=== PATIENT | male | born 1945 | race Caucasian/White ===

== ENCOUNTER 2019-04-21 08:00 | Emergency (ER) | payer OTHER ==
[~2019-04-21] VITALS: Ht 188 cm; Wt 80.3 kg
[2019-04-21] MEDS ORDERED: ACETAMINOPHEN 325 MG TABLET PO ONE (08:15)
--- NOTE | 2019-04-21 08:20 | NUR ---
Patient has refused the application of the cervical collar at this time.
[2019-04-21 08:29] LABS: HEMOGLOBIN 15.7 G/DL (13.3-17.7); WHITE BLOOD COUNT 3.8 10^3/uL (4.3-11.0)
[2019-04-21 08:30] LABS: MEAN PLATELET VOLUME 10.7 FL (7.4-10.4); RED CELL DISTRIBUTION WIDTH 11.9 % (10.0-14.5)
--- NOTE | 2019-04-21 08:34 | ED General ---
General Chief Complaint: Trauma-Non Activation Stated Complaint: FALL - HEAD INJ History of Present Illness Date Seen by Provider: Apr 21, 2019 Time Seen by Provider: 08:00 Initial Comments The patient is a 73-year-old male with a history of persistent atrial fibrillation on Eliquis. He is a daily runner and presents for evaluation after an apparent exertional syncopal episode while running prior to arrival. Patient remembers leaving his house but then does not remember what happened. He was evidently found by some local teenagers bloody and confused. A neighbor found him and transported him to the emergency department for evaluation. On initial evaluation here in the emergency department the patient is alert and oriented and pleasantly and appropriately interactive and in no acute distress. Extensive abrasions are noted to his left face and ear without open lacerations or signs of basilar fracture. He reports pain to his head and the base of his posterior neck. He reports he felt well before leaving the house for his run. He states he feels well now aside from pain where he hurt his head. He denies pain to chest or abdomen or back or arms or legs. He is in no distress. Vital signs are appropriate here and telemetry rhythm is suspicious for controlled rate atrial fibrillation. Allergies and Home Medications Allergies Coded Allergies: No Known Drug Allergies (Unverified , 04/21/19) Patient Home Medication List Home Medication List Reviewed: Yes Review of Systems Review of Systems Constitutional: see HPI All Other Systems Reviewed Negative Unless Noted: Yes (Negative excepted noted.) Past Zyrkovx-Oqmjam-Pqtitr Hx Past Med/Social Hx: Reviewed Nursing Past Med/Soc Hx Family Medical History Reviewed Nursing Family Hx Physical Exam Vital Signs Vital Signs - First Documented 04/21/19 08:00 Temp 36.4 Pulse 69 Resp 14 B/P (MAP) 155/87 (109) Pulse Ox 100 O2 Delivery Room Air Capillary Refill : Height, Weight, BMI Height: '" Weight: lbs. oz. kg; BMI Method: General Appearance: No Apparent Distress Comments This is an elderly male appearing nontoxic and in no acute distress. Head is normocephalic and with extensive abrasions to the left face and left ear. No signs basilar fracture. No malocclusion. No instability of the midface. Neck is supple and with mild tenderness to the base of the neck posteriorly. Patient declines c-collar. Oropharynx is moist. Lungs are clear to auscultation at all stations. There is a normal S1 and S2 without rubs or gallops and capillary refill is appropriate, less than 2 seconds globally. Abdomen is soft, nontender and nondistended. Skin is warm and dry without cyanosis, clubbing or edema. Psychiatrically, the patient demonstrates appropriate mood and affect and is alert. Neurologically, cranial nerves II through XII are intact and there are no lateralizing deficits noted. Speech is normal. Language is normal. Coordination is normal. There is no dysmetria with finger to nose bilaterally. Strength is 5 out of 5 in all joints of bilateral upper and lower extremities. Sensation is intact to light touch in bilateral upper and lower extremities. The patient ambulates with a narrow, steady gait in the emergency department. He is alert and oriented 4. Procedures/Interventions Wound Location: Face Wound Length (cm): 3 Wound's Depth, Shape: sub Q Wound Explored: clean Irrigated w/ Saline (ccs): 1000 Betadine Prep?: Yes Layer Closure?: 1 Progress DERMABOND used for laceration repair. Patient tolerated well. Progress/Results/Core Measures Suspected Sepsis SIRS Temperature: Pulse: Respiratory Rate: Laboratory Tests 04/21/19 08:20: White Blood Count 3.8L Blood Pressure / Mean: Laboratory Tests 04/21/19 08:20: Creatinine 1.10, INR Comment 1.0, Platelet Count 131, Total Bilirubin 2.0H Results/Orders Lab Results Laboratory Tests Test 04/21/19 08:20 Range/Units White Blood Count 3.8 L 4.3-11.0 10^3/uL Red Blood Count 4.66 4.35-5.85 10^6/uL Hemoglobin 15.7 13.3-17.7 G/DL Hematocrit 46 40-54 % Mean Corpuscular Volume 99 80-99 FL Mean Corpuscular Hemoglobin 34 25-34 PG Mean Corpuscular Hemoglobin Concent 34 32-36 G/DL Red Cell Distribution Width 11.9 10.0-14.5 % Platelet Count 131 130-400 10^3/uL Mean Platelet Volume 10.7 H 7.4-10.4 FL Prothrombin Time 13.6 12.2-14.7 SEC INR Comment 1.0 0.8-1.4 Activated Partial Thromboplast Time 26 24-35 SEC Sodium Level 140 135-145 MMOL/L Potassium Level 4.1 3.6-5.0 MMOL/L Chloride Level 99 98-107 MMOL/L Carbon Dioxide Level 27 21-32 MMOL/L Anion Gap 14 5-14 MMOL/L Blood Urea Nitrogen 14 7-18 MG/DL Creatinine 1.10 0.60-1.30 MG/DL Estimat Glomerular Filtration Rate > 60 BUN/Creatinine Ratio 13 Glucose Level 108 H 70-105 MG/DL Calcium Level 9.4 8.5-10.1 MG/DL Corrected Calcium 8.5-10.1 MG/DL Total Bilirubin 2.0 H 0.1-1.0 MG/DL Aspartate Amino Transf (AST/SGOT) 32 5-34 U/L Alanine Aminotransferase (ALT/SGPT) 23 0-55 U/L Alkaline Phosphatase 73 40-136 U/L Troponin I < 0.30 <0.30 NG/ML Total Protein 7.1 6.4-8.2 GM/DL Albumin 4.8 H 3.2-4.5 GM/DL My Orders Orders - TANYA OBRIEN MD Cbc No Diff (04/21/19 08:12) Comprehensive Metabolic Panel (04/21/19 08:12) Troponin I Fs (04/21/19 08:12) Ekg Tracing (04/21/19 08:12) Chest 1 View Ap/Pa Only (04/21/19 08:12) Protime With Inr (04/21/19 08:12) Partial Thromboplastin Time (04/21/19 08:12) Acetaminophen Tablet/Caplet (Tylenol T (04/21/19 08:15) Cervical Collar: Apply (04/21/19 08:12) Ct Head/Face/Cervical Wo (04/21/19 08:12) Dipht,Pertuss(Acell),Tet Adult (Boostrix (04/21/19 09:00) Vital Signs/I&O 04/21/19 08:00 Temp 36.4 Pulse 69 Resp 14 B/P (MAP) 155/87 (109) Pulse Ox 100 O2 Delivery Room Air Capillary Refill : Progress Note : Time: 08:44 Progress Note Concerning episode of possible exertional syncope in the setting of active persistent atrial fibrillation. We will check head and cervical spinal and maxillofacial CT scans and chest x-ray as well as labs and EKG. We will then reevaluate. We'll update tetanus. We will wash and disinfect wounds. Discussed with the patient that in view of apparent exertional syncope while running with active atrial fibrillation that my recommendation was for admission to the hospital for observation on telemetry and attention from the account coordinator even if imaging and labs were reassuring. Patient states that he is unable to stay for admission to the hospital because she is the sole caregiver for his with dementia and must be home by 9 AM. I explained that he was at risk for decompensation, permanent disability and even with leaving the hospital against my advice but he was able to restate these risks in his own words and understood them and agreed to be wholly and solely responsible for them in their entirety. Patient alert and oriented 4, not clinically intoxicated and has capacity to refuse indicated medical care in my opinion. As the patient desired to leave against my advice I did psychotherapist counselor him that he should follow up very closely with account coordinator in the next 1-2 days and that until his account coordinator clears him to run he should abstain from exercise. He understood. In accordance with the patient's wishes, we will check labs and imaging and will plan for his release against advice if these are reassuring. Update 0913: Workup complete and is unremarkable and reassuring for evidence of significant acute process. Patient is in controlled rate atrial fibrillation which is apparently his baseline rhythm on the monitoring tech. He has thought about it and is choosing to leave against advice at this time. As above, he understands the risks and understands that we will be glad to take further care of him if he changes his mind. ECG Comment Multiple EKGs obtained and all show controlled rate atrial fibrillation with a rate of around 70 without acute ischemic changes. Interpretation by me. Departure Impression Primary Impression: Syncope and collapse Additional Impression: Atrial fibrillation Qualified Codes: I48.19 - Other persistent atrial fibrillation Disposition: AGAINST MEDICAL ADVICE Condition: Against Medical Advice Departure-Patient Inst. Patient Instructions: Atrial Fibrillation, Concussion, Adult (DC) Add. Discharge Instructions: As we discussed, you are leaving AGAINST MEDICAL ADVICE. Please follow-up with your account coordinator in the next 1-2 days and please abstain from running or other physical activity until cleared to return to full activity by your account coordinator. Please keep in mind that you may return to the emergency department any time if you change your mind about further evaluation and treatment on an inpatient basis and we will be glad to take care of you. Return right away with recurrent or worsening symptoms or with any other new concern. TANYA OBRIEN MD Apr 21, 2019 08:34
--- NOTE | 2019-04-21 08:34 | Diagnostic Imaging Report ---
PATIENT HISTORY: Altered mental status, memory loss. TECHNIQUE: Frontal view the chest. COMPARISON: None FINDINGS: The lung volumes are normal. No focal consolidation is seen. No large pleural effusion or pneumothorax is seen. The cardiomediastinal silhouette is normal in size and contour. No acute osseous abnormality is seen. IMPRESSION: No acute pulmonary abnormality seen. Dictated by: Dictated on workstation # [id number]
[2019-04-21 08:49] LABS: PROTHROMBIN TIME PATIENT 13.6 SEC (12.2-14.7); SODIUM 140 MMOL/L (135-145)
[2019-04-21 08:50] LABS: ALANINE AMINOTRANSFERASE 23 U/L (0-55); ALBUMIN 4.8 GM/DL (3.2-4.5); ALKALINE PHOSPHATASE 73 U/L (40-136); BUN/CREATININE RATIO 13; CALCIUM 9.4 MG/DL (8.5-10.1); CARBON DIOXIDE 27 MMOL/L (21-32); CHLORIDE 99 MMOL/L (98-107); GFR ESTIMATED > 60; GLUCOSE 108 MG/DL (70-105); POTASSIUM 4.1 MMOL/L (3.6-5.0); TOTAL PROTEIN 7.1 GM/DL (6.4-8.2)
[2019-04-21] MEDS ORDERED: TETANUS,DIPTH,PERTUSS P/F (BOOSTRIX) 0.5 ML VIAL IM ONE (09:00)
--- NOTE | 2019-04-21 09:04 | Diagnostic Imaging Report ---
PROCEDURE: CT head, face, and cervical spine without contrast. TECHNIQUE: Multiple contiguous axial images were obtained through the head, neck, and facial bones without the use of intravenous contrast. Sagittal and coronal reformations through the cervical spine and facial bones were also performed. Auto Exposure Controls were utilized during the CT exam to meet ALARA standards for radiation dose reduction. INDICATION: Confusion. No prior studies are available for comparison. CT HEAD: There appears to be some soft tissue swelling in the left supraorbital scalp. Ventricles and sulci are prominent suggestive of cerebral atrophy. No sulcal effacement or midline shift is detected. No acute intra-axial or extra-axial hemorrhage is detected. Cisterns are patent. Visualized paranasal sinuses are clear. IMPRESSION: Left supraorbital swelling. No acute intracranial process is detected. CT cervical spine: Curvature of the cervical spine is normal. There is minimal retrolisthesis C4 on C5. Significant degenerative disc disease is seen throughout the cervical spine with disc space narrowing and marginal spurring, greatest at C4-C5, C5-C6 and C6-C7 levels. No fractures are identified. IMPRESSION: Cervical spondylosis. No acute bony abnormality is detected. CT FACE: The mandible is intact. Zygomatic arches are intact. Maxillary sinus guzman and orbital guzman appear to be intact. No displaced nasal bone fracture is seen. There is some soft tissue swelling in the left supraorbital tissues. Both globes appear to be intact. IMPRESSION: Left supraorbital soft tissue swelling. No facial bone fracture is detected. Dictated by: Dictated on workstation # [id number]
--- NOTE | 2019-04-21 09:20 | NUR ---
Patient wishes to leave against medical advice at this time. He states that he is the only one that is available to care for his with severe dementia. This RN reinterated the benefits of hospital admission for observation and the risk of leaving against medical advice.
[2019-04-21 09:22] VITALS: BP 138/89
[2019-04-21] MEDS ORDERED: OXC5T PO (19:15)
== END 2019-04-21 09:22 | disposition left against medical advice (07) ==
LOC: ER FS 08:02
DX: R55 Syncope and collapse (principal); I48.91 Unspecified atrial fibrillation; S01.81XA Laceration without foreign body of other part of head, initial encounter; Z23 Encounter for immunization; Z79.01 Long term (current) use of anticoagulants; W19.XXXA Unspecified fall, initial encounter
CPT/HCPCS: 36415; 70450; 70486; 71045; 72125; 80053; 84484; 85027; 85610; 85730; 90715; 93005

== ENCOUNTER 2019-04-21 14:29 | Emergency (ER) | payer OTHER ==
--- NOTE | 2019-04-21 14:46 | ED General ---
General Stated Complaint: LT EYE SWELLING - FELL ETHEL GARCÍA History of Present Illness Date Seen by Provider: Apr 21, 2019 Time Seen by Provider: 14:30 Initial Comments 73-year-old gentleman with a history of persistent atrial fibrillation who was previously seen in this emergency department this morning after an apparent syncopal episode during a run, with consequent facial abrasions and lacerations, presents for reevaluation of progressive left periorbital swelling and bruising. Patient previously left the emergency department AGAINST MEDICAL ADVICE when it was recommended that he be admitted for observation and attention from the power distributor given exertional syncope in an elderly gentleman with persistent atrial fibrillation. He declined to be admitted. Patient returns because he was worried about progression of the left periorbital swelling and bruising which was previously seen this morning. At the time of his departure from the emergency Department I did school guidance counselor him that he could expect the left periorbital bruising and swelling to get worse and indeed it has. I provided him with reassurance that this was the expected natural history of the periorbital contusion he sustained this morning; we already obtained CT scans of the head, facial bones and cervical spine and these were reassuring and as such there is no suspicion for basilar fracture, orbital fracture or other acute process underlying the patient's left periorbital contusion.. I queried the patient as to how he was doing otherwise and he stated that aside from the left periorbital contusion he was feeling well and had no complaints. He ambulated in without any difficulty from his car. I raised with him again that it was my recommendation that he be admitted for observation and a change from the power distributor and he again stated that he felt fine and felt that he just tripped. I pointed out that he did not have wounds on his palms as would be expected in a trip and fall versus a syncopal episode. He continued to decline the recommended observation admission. I let him know that we would be glad to take care of him if he had any further issues or concerns or wished to be further evaluated as per our recommendations. He stated he understood and departed the emergency department. Allergies and Home Medications Patient Home Medication List Home Medication List Reviewed: Yes Review of Systems Review of Systems Constitutional: see HPI All Other Systems Reviewed Negative Unless Noted: Yes (Negative excepted noted.) Past Ccjepza-Seicns-Lxkviy Hx Past Med/Social Hx: Reviewed Nursing Past Med/Soc Hx Family Medical History Reviewed Nursing Family Hx Physical Exam Vital Signs Capillary Refill : Height, Weight, BMI Height: '" Weight: lbs. oz. kg; BMI Method: General Appearance: No Apparent Distress Comments Tessz an elderly gentleman appearing nontoxic and in no acute distress. Head is normocephalic and with extensive left facial abrasions and a laceration to the left forehead which was Dermabonded earlier. There is a left periorbital contusion which has grown in size since previously noted this morning to involve the entire left orbit with considerable swelling seen. Neck ranges fully in all dimensions. Oropharynx is moist. There is normal respiratory excursion and the patient is not dyspneic and speaks comfortably in full sentences. From a cardiovascular and musculoskeletal standpoint, extremities are warm and well perfused and without edema. Skin is warm and dry without cyanosis, clubbing or edema. Psychiatrically, the patient demonstrates appropriate mood and affect and is alert. Neurologically, patient moves all extremities equally and no lateralizing deficits are noted and he is alert and oriented 4. Progress/Results/Core Measures Suspected Sepsis SIRS Temperature: Pulse: Respiratory Rate: Blood Pressure / Mean: Results/Orders Vital Signs/I&O Capillary Refill : Progress Note : Time: 14:50 Progress Note As above, patient was provided with reassurance concerning the expected natural history of his left periorbital contusion sustained earlier in the day. Admission to [facility] for observation and attention from the power distributor for his syncopal episode earlier was again offered and he again declined. I again encouraged him to follow up very closely with his power distributor and his primary care physician in the next 1-2 days. He departed the emergency department with a narrow, steady gait. Departure Impression Primary Impression: Syncope and collapse Additional Impression: Periorbital contusion of left eye Qualified Codes: S05.12XD - Contusion of eyeball and orbital tissues, left eye, subsequent encounter Disposition: 01 HOME, SELF-CARE Condition: Against Medical Advice TANYA OBRIEN MD Apr 21, 2019 14:46
[2019-04-21] MEDS ORDERED: OXC5T PO (19:15)
== END 2019-04-21 14:57 ==
LOC: EDUNIT# 14:29 → ER FS 14:56
DX: S05.12XD Contusion of eyeball and orbital tissues, left eye, subsequent encounter (principal); R55 Syncope and collapse; Z23 Encounter for immunization; W19.XXXD Unspecified fall, subsequent encounter

== ENCOUNTER 2019-04-21 18:08 | Emergency (ER) | payer OTHER ==
[~2019-04-21] VITALS: Ht 188 cm; Wt 80.3 kg
--- NOTE | 2019-04-21 19:12 | ED Upper Extremity ---
General Chief Complaint: Upper Extremity Stated Complaint: RT WRIST PAIN Nursing Triage Note: Patient presents to the ED with c/o right wrist pain. States that he was seen in the ED earlier today for a fall/syncopal episode. Since leaving the ED he has developed pain in his right wrist and reports that he is having a significant amount of pain. Nursing Sepsis Screen: No Definite Risk History of Present Illness Date Seen by Provider: Apr 21, 2019 Time Seen by Provider: 19:06 Initial Comments The patient is a 73-year-old male with a history of persistent atrial fibrillation on Eliquis. He had a fall while running this morning, likely from a syncopal episode, and has been seen here twice previously today for issues related to his fall. He has declined admission to the hospital which was indicated secondary to syncopal episode in a gentleman with active atrial fibrillation which occurred during exertion. He has signed out AGAINST MEDICAL ADVICE. He reiterates that he is not interested in observation admission in the tension from discharge planner as was recommended earlier. He returns this evening for evaluation of right wrist discomfort which was initially not significant but has gotten worse over the course of the day. He denies any other new symptoms or concerns and is otherwise feeling bruised and sore but has not had any further problems he would like evaluated. He states that he is here only for evaluation of his right wrist discomfort and does not wish to readdress any of the other issues that were explored earlier today. Allergies and Home Medications Allergies Coded Allergies: No Known Drug Allergies (Unverified , 04/21/19) Patient Home Medication List Home Medication List Reviewed: Yes Review of Systems Constitutional: no symptoms reported All Other Systems Reviewed Negative Unless Noted: Yes (Negative excepted noted.) Past Usdiugj-Wqrmjf-Nsubkp Hx Past Med/Social Hx: Reviewed Nursing Past Med/Soc Hx Patient Social History Alcohol Use: Denies Use Recreational Drug Use: No Smoking Status: Never a Smoker 2nd Hand Smoke Exposure: No Recent Foreign Travel: No Contact w/Someone Who Travel: No Recent Infectious Disease Expo: No Recent Hopitalizations: No Physical Abuse: No Sexual Abuse: No Mistreated: No Fear: No Immunizations Up To Date Tetanus Booster (TDap): More than 5yrs Seasonal Allergies Seasonal Allergies: No Past Medical History Surgeries: No Respiratory: No Cardiac: Yes Atrial Fibrillation, Irregular Heartbeat Neurological: No Genitourinary: No Gastrointestinal: No Musculoskeletal: No Endocrine: No HEENT: No Cancer: No Psychosocial: No Integumentary: No Blood Disorders: No Family Medical History Reviewed Nursing Family Hx Physical Exam Vital Signs Vital Signs - First Documented 04/21/19 18:26 Temp 37.1 Pulse 65 Resp 20 B/P (MAP) 97/76 (83) Pulse Ox 100 O2 Delivery Room Air Capillary Refill : Less Than 3 Seconds Height, Weight, BMI Height: '" Weight: lbs. oz. kg; 22.00 BMI Method: General Appearance: no apparent distress This is an elderly male appearing nontoxic and in no acute distress. He has evidence of left facial abrasion and a repaired laceration as well as a developing left periorbital contusion which was previously seen. Please see details of the to notes from earlier today for further information about his facial injuries as these are essentially not changed. Neck is supple and nontender. Oropharynx is moist. Lungs are clear to auscultation at all stations. There is a normal S1 and S2 without rubs or gallops and capillary refill is appropriate, less than 2 seconds globally. Abdomen is soft, nontender and nondistended. Skin is warm and dry without cyanosis, clubbing or edema. Psychiatrically, the patient demonstrates appropriate mood and affect and is alert. From a musculoskeletal standpoint, evaluation of the right upper extremity is remarkable for mild swelling and tenderness worst over the radial aspect of the volar right wrist. There is mild pain with ranging of the right wrist passively but the patient does have full range of motion of the right wrist. Active ranging is limited secondary to discomfort. The right upper extremity is neurovascularly intact distally with strength 5 out of 5, sensation intact to light touch in all nerve distributions, radial pulse 2+, capillary refill less than 2 seconds, hand warm and well-perfused. Progress/Results/Core Measures Results/Orders My Orders Orders - TANYA OBRIEN MD Hand 3 View Right (04/21/19 18:32) Vital Signs/I&O 04/21/19 18:26 Temp 37.1 Pulse 65 Resp 20 B/P (MAP) 97/76 (83) Pulse Ox 100 O2 Delivery Room Air Blood Pressure Mean: 83 Progress Progress Note : Time: 19:10 Progress Note Plain films of the right wrist obtained and are unremarkable for evidence of fracture or dislocation. Hand is also imaged and these images too are unre markable and reassuring. We'll prescribe something stronger for pain which the patient may take as needed on top of Tylenol at home and will place a Velcro wrist splint and will refer the patient back to his primary for close follow-up in the next 1-2 days. As per prior notes, the patient declines indicated admission to the hospital for observation on telemetry and attention from the discharge planner. This has not changed. We will proceed with discharge at this time. Diagnostic Imaging Diagonstic Imaging: Xray Comments Plain films of the right wrist and hand are reviewed and are unremarkable for fracture, dislocation or other acute bony abnormality on my read. Departure Impression Primary Impression: Contusion of right wrist, initial encounter Disposition: HOME, SELF-CARE Condition: Improved Departure-Patient Inst. Referrals: INA TEE MD (PCP/Family) Primary Care Physician Add. Discharge Instructions: We are providing you with a wrist brace which she may use for comfort. Rest, ice and elevate your wrist and hand. We are prescribing something stronger for pain which you may use as needed. Return to the emergency department right away with recurrent or worsening symptoms or with any other new symptoms of concern. As we discussed earlier today, it is extremely important that you follow up closely with your discharge planner. If you feel you would like that evaluation to happen on an inpatient basis as we recommended earlier, simply return and we will facilitate that. Scripts Oxycodone Hcl (Oxycodone IR) 5 Mg Tab 5 MG PO Q6H PRN for PAIN-SEVERE (8-10) for 7 Days, #8 TAB Prov: TANYA OBRIEN MD 04/21/19 TANYA OBRIEN MD Apr 21, 2019 19:12
[2019-04-21] MEDS ORDERED: OXC5T PO (19:15)
--- NOTE | 2019-04-21 19:20 | Diagnostic Imaging Report ---
INDICATION: Fall, pain COMPARISON: None available TECHNIQUE: 3 radiographs of the right hand dated 04/21/2019 FINDINGS: No acute fracture or dislocation. Mild scattered degenerative changes, particularly involving the 2nd DIP joint where there is significant joint space narrowing and osteophyte formation. Carpal alignment is maintained. Scapholunate distance is within normal limits. No suspicious radiopaque foreign body. IMPRESSION: No acute osseous abnormality with mild scattered degenerative changes, greatest involving the 2nd DIP joint. Dictated by: Dictated on workstation # [id number]
[2019-04-21 19:24] VITALS: BP 97/76
== END 2019-04-21 19:24 | disposition home or self-care (01) ==
LOC: EDUNIT# 18:08 → ER FS 18:09
DX: S60.211A Contusion of right wrist, initial encounter (principal); I48.91 Unspecified atrial fibrillation; Z23 Encounter for immunization; W19.XXXA Unspecified fall, initial encounter
CPT/HCPCS: 73130

== ENCOUNTER 2019-08-16 14:52 | Emergency (ER) | payer OTHER ==
[~2019-08-16] VITALS: Ht 187.9 cm; Wt 77.3 kg
[~2019-08-16 14:52] MED LIST: OXC5T PO
--- NOTE | 2019-08-16 15:03 | ED Lower Extremity ---
General Stated Complaint: LT KNEE SWELLING Source: patient Exam Limitations: no limitations History of Present Illness Date Seen by Provider: August 16, 2019 Time Seen by Provider: 15:03 Initial Comments 73-year-old male presents with left knee and lower leg swelling. Patient reports that it started about a week ago. That call days ago he was seen by his primary care provider had a negative x-ray and a negative ultrasound. These reports are still little concerned about a blood clot. He also reports they found a Bowden's cyst on the ultrasound. Patient has some mild increased warmth. He does have some pitting edema. Patient reports that he runs daily and felt that he hurt his knee after running. That he patient also reports that he's been taking some hydrocodone and ibuprofen. That since he started the pain medication he is had constipation. He denies any fevers chills or other systemic complaints. Allergies and Home Medications Allergies Coded Allergies: No Known Drug Allergies (Unverified , 04/21/19) Home Medications Oxycodone Hcl 5 Mg Tab, 5 MG PO Q6H PRN for PAIN-SEVERE (8-10) Prescribed by: TANYA OBRIEN on 04/21/191914 Patient Home Medication List Home Medication List Reviewed: Yes Review of Systems Constitutional: No chills, No fever, No malaise EENTM: see HPI Respiratory: no symptoms reported Cardiovascular: no symptoms reported Gastrointestinal: no symptoms reported Genitourinary: no symptoms reported Musculoskeletal: see HPI Skin: see HPI Past Xnxegqn-Cbedds-Kceqvg Hx Past Med/Social Hx: Reviewed Nursing Past Med/Soc Hx Patient Social History 2nd Hand Smoke Exposure: No Recent Foreign Travel: No Contact w/Someone Who Travel: No Recent Hopitalizations: No Immunizations Up To Date Tetanus Booster (TDap): More than 5yrs Seasonal Allergies Seasonal Allergies: No Past Medical History Surgeries: No Respiratory: No Cardiac: Yes Atrial Fibrillation, Irregular Heartbeat Neurological: No Genitourinary: No Gastrointestinal: No Musculoskeletal: No Endocrine: No HEENT: No Cancer: No Psychosocial: No Integumentary: No Blood Disorders: No Physical Exam Vital Signs Vital Signs - First Documented 08/16/19 15:00 Temp 35.3 Pulse 73 Resp 22 B/P (MAP) 97/71 (80) Pulse Ox 100 O2 Delivery Room Air Capillary Refill : Height, Weight, BMI Height: '" Weight: lbs. oz. kg; 22.00 BMI Method: General Appearance: WD/WN, no apparent distress HEENT: PERRL/EOMI Cardiovascular: normal peripheral pulses, regular rate, rhythm Respiratory: chest non-tender, lungs clear Knees: right knee non-tender; left knee pain, left knee swelling (3+ edema in the lower leg) Neurologic/Psychiatric: alert, normal mood/affect, oriented x 3 Skin: normal color, warm/dry Progress/Results/Core Measures Results/Orders My Orders Orders - ALLIE EDWARDS DO Us Venous Lower Ext Lt (08/16/19 15:11) Vital Signs/I&O 08/16/19 15:00 Temp 35.3 Pulse 73 Resp 22 B/P (MAP) 97/71 (80) Pulse Ox 100 O2 Delivery Room Air Progress Progress Note : Time: 16:17 Progress Note Patient with large Bowden's cyst with rupture with large fluid collection. Patient with good pulses. Patient with no numbness tingling or other signs of compartment syndrome. Discussed with patient need for elevation in other exercises a help remove the fluid. Patient to be referred to Jake Nunes. I did discuss with ID need for patient to follow-up with a hearing aid specialist. They where given Jake Nunes contact information and will attempt to expidite a preauthorization for close follow-up. Patient to be discharged home in stable condition. Diagnostic Imaging Diagonstic Imaging: Ultrasound Comments [facility], [place] NAME: [facility] REC#: [id number] PT STATUS: REG ER : 1945 PHYSICIAN: ALLIE EDWARDS DO ADMIT DATE: 08/16/19/ER FS Signed Date of Exam:08/16/19 US VENOUS LOWER EXT LT PROCEDURE: US left lower extremity venous. TECHNIQUE: Multiple real-time grayscale images were obtained over the left lower extremity in various projections. Additional duplex Doppler and color Doppler images were also obtained. INDICATION: Left leg pain and swelling. FINDINGS: There is no evidence of left lower extremity DVT. Left lower extremity deep venous system demonstrates normal compressibility with normal response to augmentation and Valsalva. There is a large complex fluid collection in the left popliteal fossa extending into the calf measuring at least 10 cm x 6 cm x 3 cm. This most likely represents a ruptured Bowden's cyst. IMPRESSION: 1. No evidence of left lower extremity DVT. 2. Probable ruptured Bowden's cyst. Departure Impression Primary Impression: Synovial cyst of popliteal space [Bowden], left knee Disposition: 01 HOME, SELF-CARE Condition: Stable Departure-Patient Inst. Referrals: SHUKRI HARPER MD (PCP) Primary Care Physician ELENA CASTELLON Patient Instructions: Bowden's (Popliteal) Cyst, Bowden's Cyst (DC) Add. Discharge Instructions: Recommend she follow-up with elena kohlersJake TREVOR L DO August 16, 2019 15:03
--- NOTE | 2019-08-16 15:42 | Diagnostic Imaging Report ---
PROCEDURE: US left lower extremity venous. TECHNIQUE: Multiple real-time grayscale images were obtained over the left lower extremity in various projections. Additional duplex Doppler and color Doppler images were also obtained. INDICATION: Left leg pain and swelling. FINDINGS: There is no evidence of left lower extremity DVT. Left lower extremity deep venous system demonstrates normal compressibility with normal response to augmentation and Valsalva. There is a large complex fluid collection in the left popliteal fossa extending into the calf measuring at least 10 cm x 6 cm x 3 cm. This most likely represents a ruptured Bowden's cyst. IMPRESSION: 1. No evidence of left lower extremity DVT. 2. Probable ruptured Bowden's cyst. Dictated by: Dictated on workstation # [id number]
--- NOTE | 2019-08-16 15:56 | NUR ---
Report was given to BECKY Dinero at this time. Care was transferred at this time.
[2019-08-16 16:17] VITALS: BP 97/71
--- OUTSIDE RECORDS SUMMARY | 2019-08-16 19:16 | XMS REPORT | Continuity of Care Document ---
Author Organization Unknown Address Unknown Phone Unavailable Allergies Active Description Code Type Severity Reaction Onset Reported/Identified Relationship to Patient Clinical Status Yes No Known Drug Allergies [id number] Drug Allergy Unknown N/A 04/21/2019 Medications There is no data. Problems Date Dx Coded Attending Type Code Diagnosis Diagnosed By 04/21/2019 TANYA OBRIEN MD, Ot I48. 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 91 UNSPECIFIED ATRIAL FIBRILLATION 04/24/2019 TANYA OBRIEN MD, Ot M25.531 PAIN IN RIGHT WRIST 04/24/2019 TANYA OBRIEN MD, Ot S60.211A CONTUSION OF RIGHT WRIST, INITIAL ENCOUN 04/24/2019 TANYA OBRIEN MD, Ot W19.XXXA UNSPECIFIED FALL, INITIAL ENCOUNTER 04/24/2019 TANYA OBRIEN MD, Ot Z23 ENCOUNTER FOR IMMUNIZATION 07/31/2019 TANYA OBRIEN MD, Ot I48. 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 Results Test Result Range Automated blood complete blood count (he mogram) panel - 04/21/19 08:20 Blood leukocytes automated count (number/volume) 3.8 10*3/uL 4.3-11.0 Blood erythrocytes automated count (number/volume) 4.66 10*6/uL 4.35-5.85 Venous blood hemoglobin measurement (mass/volume) 15.7 g/dL 13.3-17.7 Blood hematocrit (volume fraction) 46 % 40-54 Automated erythrocyte mean corpuscular volume 99 [ foz_us] 80-99 Automated erythrocyte mean corpuscular h emoglobin (mass per erythrocyte) 34 pg 25-34 Automated erythrocyte mean corpuscular h emoglobin concentration measurement (mass/volume) 34 g/dL 32-36 Automated erythrocyte distribution width ratio 11. 9 % 10.0- 14.5 Automated blood platelet count (count/volume) 131 10*3/uL 130-400 Automated blood platelet mean volume measurement 10.7 [foz_us] 7.4-10.4 PT panel in platelet poor plasma by coag ulation assay - 04/21/19 08:20 Prothrombin time (PT) in platelet poor plasma by coagu lation assay 13.6 s 12.2-14.7 INR in platelet poor plasma or blood by coagulation as say 1.0 0.8-1.4 Activated partial thromboplastin time (a PTT) in platelet poor plasma bycoagulation assay - 04/21/19 08:20 Activated partial thromboplastin time (a PTT) in platelet poor plasma bycoagulation assay 26 s 24-35 Comprehensive metabolic panel - 04/21/19 08:20 Serum or plasma sodium measurement (moles/volume) 140 mmol/L 135-145 Serum or plasma potassium measurement (moles/volume) 4.1 mmol/L 3.6-5.0 Serum or plasma chloride measurement (moles/volume) 99 mmol/L 98-107 Carbon dioxide 27 mmol/L 21-32 Serum or plasma anion gap determination (moles/volume) 14 mmol/L 5-14 Serum or plasma urea nitrogen measurement (mass/volume ) 14 mg/dL 7-18 Serum or plasma creatinine measurement (mass/volume) 1.10 mg/dL 0.60-1.30 Serum or plasma urea nitrogen/creatinine mass ratio 13 NRG Serum or plasma creatinine measurement w ith calculation of estimated glomerular filtration rate > NRG Serum or plasma glucose measurement (mass/volume) 108 mg/dL 70-105 Serum or plasma calcium measurement (mass/volume) 9.4 mg/dL 8.5-10.1 Serum or plasma total bilirubin measurement (mass/volu me) 2.0 mg/dL 0.1-1.0 Serum or plasma alkaline phosphatase santos surement (enzymatic activity/volume) 73 U/L 40-136 Serum or plasma aspartate aminotransfera se measurement (enzymatic activity/volume) 32 U/L 5-34 Serum or plasma alanine aminotransferase measurement (enzymatic activity/volume) 23 U/L 0-55 Serum or plasma protein measurement (mass/volume) 7.1 g/dL 6.4-8.2 Serum or plasma albumin measurement (mass/volume) 4.8 g/dL 3.2-4.5 TROPONIN I FS - 04/21/19 08:20 TROPONIN I FS < 0.30 <0.30 Encounters ACCT No. Visit Date/Time Discharge Status Pt. Type Provider Facility Loc./Unit Complaint [id number] 04/21/2019 18:09:00 020 19:24:00 DIS Outpatient TANYA OBRIEN MD [facility] ER FS RT WRIST PAIN [id number] 04/21/2019 14:56:00 020 14:57:00 DIS Emergency TANYA OBRIEN MD [facility] ER FS LT EYE SWELLING - FELL THIS MORN [id number] 04/21/2019 08:02:00 09:22:00 DIS Outpatient TANYA OBRIEN MD [facility] ER FS FALL - HEAD INJ
== END 2019-08-16 16:17 | disposition home or self-care (01) ==
LOC: EDUNIT# 14:52 → ER FS 14:56
DX: M71.22 Synovial cyst of popliteal space [Baker], left knee (principal)

== ENCOUNTER → 2020-05-13 | Outpatient (CLI) | payer OTHER ==
--- NOTE | 2020-05-13 14:20 | Diagnostic Imaging Report ---
EXAMINATION: Left knee at 1:34 p.m. INDICATION: Knee pain. Five views were obtained. There are no prior studies available for comparison. There is no fracture, dislocation or acute bony abnormality evident. However there is fairly severe degenerative disease involving the medial compartment of the knee joint. The joint space is narrowed and there is mild sclerosis of the opposing surfaces of the medial femoral condyle and medial proximal tibia. There also appears to be at least moderate degenerative disease of the patellofemoral space and the lateral compartment. The soft tissues are unremarkable. IMPRESSION: 1. There is no evidence for an acute bony abnormality. 2. There is degenerative disease involving the knee joint with the medial compartment the most severely affected. Dictated by: Dictated on workstation # [id number]
== END ==
LOC: RAD FS 13:21
PROVIDERS: ATTEND Family Medicine
DX: M17.12 Unilateral primary osteoarthritis, left knee (principal)
CPT/HCPCS: 73564

== ENCOUNTER → 2020-08-19 | Outpatient (CLI) | payer OTHER | LOC: CARD 13:15 | PROVIDERS: ATTEND Internal Medicine Cardiovascular Disease | DX: I08.0 Rheumatic disorders of both mitral and aortic valves (principal); I51.7 Cardiomegaly; I48.0 Paroxysmal atrial fibrillation | CPT/HCPCS: 93306 ==

== ENCOUNTER → 2020-08-19 | Day surgery (SDC) | payer OTHER ==
[~2020-08-19] VITALS: Ht 187 cm; Wt 77.3 kg
[~2020-08-19] MED LIST changes: +LIDOCAINE 1% INJ 20 ML 20 ML VIAL INJ ONE; +LIDOCAINE 1% INJ 20 ML 20 ML VIAL ONE
[2020-08-19 09:44] VITALS: BP 156/99
[2020-08-19 10:45] VITALS: BP 145/91
--- NOTE | 2020-08-19 10:52 | Cardiac Procedure Note-CS/ASA ---
Pre-Procedure Note Pre-Op Procedure Note H&P Reviewed The H&P was reviewed, patient examined and no changes noted. Date H&P Reviewed: Aug 19, 2020 Time H&P Reviewed: 10:00 Conscious Sedation Pre-Proced Time 10:00 ASA Score 2 For ASA 3 and 4: Consider anesthesia and medical clearance. Also, for patients with a history of failed moderate sedation consider anesthesia. Airway Lungs Heart ASA score ASA 1: a normal healthy patient ASA 2: a patient with a mild systemic disease (mid diabetes, controlled hypertension, obesity ASA 3: a patient with a severe systemic disease that limits activity (angina, COPD, prior Myocardial infarction) ASA 4: a patient with an incapacitating disease that is a constant threat to life (CHF, renal failure) ASA 5: a moribund patient not expected to survive 24 hrs. (ruptured aneurysm) ASA 6: a declared brain- patient whose organs are being harvested. For emergent operations, add the letter E after the classification Mallampati Classification Grade 2 Sedation Plan Analgesia, Amnesia, Plan communicated to team members, Discussed options with patient/fam, Discussed risks with patient/fam The patient is an appropriate candidate to undergo the planned procedure, sedation, and anesthesia. The patient immediately re-assessed prior to indication. HOSSEIN BENITES MD FACP FAC CCDS Aug 19, 2020 10:52
--- NOTE | 2020-08-19 14:17 | OPERATIVE REPORT ---
DATE OF SERVICE: PREOPERATIVE DIAGNOSIS: History of paroxysmal atrial fibrillation. POSTOPERATIVE DIAGNOSIS: History of paroxysmal atrial fibrillation. PROCEDURE PERFORMED: Implantable loop recorder implantation. INDICATIONS FOR PROCEDURE: The patient is a 74-year-old man, who has a history of paroxysmal atrial fibrillation for which he has undergone an ablation. To monitor for recurrent paroxysmal atrial fibrillation, an implantable loop recorder implantation was carried out today. If he remains free of atrial fibrillation, he can avoid oral anticoagulation. DESCRIPTION OF PROCEDURE: Informed consent was obtained for this procedure. We used the tools provided with the [employer] LINQ2 device to make a subcutaneous pocket anterior to the left fourth intercostal space, after the chest wall had been prepared and draped in the usual sterile fashion. The device was placed in the subcutaneous pocket and the skin edges were closed using Steri-Strips and Dermabond. The serial number of the device is [id number]. Job ID: [id number] DocumentID: [id number] Dictated Date: 08/19/2020 10:59:57 Special Education Inclusion Teacher Date: 08/19/2020 14:16:56 Dictated By: HOSSEIN BENITES MD, MA, FACP, FACC,
== END ==
LOC: CATH 09:23
PROVIDERS: ATTEND Internal Medicine Cardiovascular Disease
DX: I48.0 Paroxysmal atrial fibrillation (principal); I34.0 Nonrheumatic mitral (valve) insufficiency; Z79.899 Other long term (current) drug therapy; Z79.01 Long term (current) use of anticoagulants; Z98.890 Other specified postprocedural states; Z80.9 Family history of malignant neoplasm, unspecified
CPT/HCPCS: 33285

== ENCOUNTER → 2021-09-09 | Outpatient (CLI) | payer OTHER ==
[~2021-09-09] MED LIST changes: -LIDOCAINE 1% INJ 20 ML 20 ML VIAL INJ ONE; -LIDOCAINE 1% INJ 20 ML 20 ML VIAL ONE
--- NOTE | 2021-09-09 10:46 | Diagnostic Imaging Report ---
CLINICAL INDICATION: Patient has been having a glare in his vision, balance issues and dizziness. Patient has history of fall where he hit his head in April 2019. EXAM: MRI of the brain/ IACs performed without IV contrast. Sequences include sagittal T1 localizer, axial T2, axial flair, axial T1, axial gradient echo, DWI, ADC map, axial T1 thin, axial T2 thin, coronal T1 thin, and axial T2 3D FIESTA. COMPARISONS: CT scan of the head, face, and cervical spine without contrast dated 04/21/2019. FINDINGS: TEMPORAL BONE STRUCTURES: Unremarkable. The internal auditory canal, otic capsule, middle ear, and temporal bone structures have normal anatomic appearance and are unremarkable. There is no abnormal fluid in the mastoid air cells seen. The visualized nerves VII and VIII within the IACs bilaterally and cisternal portions have normal appearance. CISTERNAL STRUCTURES: There is no cisternal mass seen. The remainder of the visualized cranial nerves in the basal cistern regions are unremarkable. BRAIN PARENCHYMA: There are a few focal areas of high T2 signal white matter changes involving both cerebral hemispheres, likely representing chronic small vessel ischemic disease. The brain parenchymal volume appears appropriate for patient's age. There is no significant architectural distortion, midline shift, or herniation. There is no diffusion restriction signal changes. VENTRICLES: There is no hydrocephalus. VISUALIZED INTRACRANIAL VESSELS: Unremarkable as visualized. SKULL/ ORBITS: Unremarkable. VISUALIZED PARANASAL SINUSES: There is minimal ethmoid sinus mucosal thickening. IMPRESSION: 1: Unremarkable of the internal auditory canals, temporal bone structures, and basal cisterns on this non IV contrasted exam. 2: Mild age-related brain parenchymal changes. 3: Mild paranasal sinus disease. Dictated by: Dictated on workstation # [id number]
== END ==
LOC: RAD 07:35
PROVIDERS: ATTEND Family Medicine
DX: G31.1 Senile degeneration of brain, not elsewhere classified (principal); J34.9 Unspecified disorder of nose and nasal sinuses
CPT/HCPCS: 70551

== ENCOUNTER 2022-02-25 20:01 | Emergency (ER) | payer OTHER ==
[~2022-02-25] VITALS: Ht 187.9 cm; Wt 79.6 kg
--- NOTE | 2022-02-25 20:23 | ED Cardiac General ---
History of Present Illness General Chief Complaint: Cardiac/General Problems Stated Complaint: ELEVATED PULSE,DIZZY History of Present Illness Date Seen by Provider: Feb 25, 2022 Time Seen by Provider: 20:22 Initial Comments 76-year-old male is here with complaints of increased heart rate. Patient states that his heart rate is normally in the 40s all the time and today it has been in the 70s and 80s and he is concerned. Patient states that he is also feeling anxiety and insomnia. Denies chest pain, palpitations, abdominal pain, fever, shortness of breath, diarrhea. 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 Patient feels like it is becoming increasingly difficult for him to do so, and he feels lonely and isolated. Patient takes a lot of natural supplements. Allergies and Home Medications Allergies Coded Allergies: No Known Drug Allergies (Unverified , 04/21/19) Patient Home Medication List Home Medication List Reviewed: Yes Oxycodone Hcl (Oxycodone IR) 5 Mg Tab, 5 MG PO Q6H PRN for PAIN-SEVERE (8-10) Prescribed by: TANYA OBRIEN on 04/21/191914 Review of Systems Review of Systems Constitutional: no symptoms reported EENTM: No Symptoms Reported Respiratory: No Symptoms Reported Cardiovascular: No Symptoms Reported Gastrointestinal: No Symptoms Reported Genitourinary: No Symptoms Reported Musculoskeletal: no symptoms reported Skin: no symptoms reported Psychiatric/Neurological: Anxiety, Depressed Endocrine: No Symptoms Reported Hematologic/Lymphatic: No Symptoms Reported Past Sbqrbpw-Xpvbtx-Uldbob Hx Immunizations Up To Date Tetanus Booster (TDap): More than 5yrs Seasonal Allergies Seasonal Allergies: No Past Medical History Surgeries: Yes (ablation) Respiratory: No Cardiac: Yes (ablation) Atrial Fibrillation, Irregular Heartbeat Neurological: No Genitourinary: No Gastrointestinal: No Musculoskeletal: No Endocrine: No HEENT: No Cancer: No Psychosocial: No Integumentary: No Blood Disorders: No Physical Exam Vital Signs Capillary Refill : Height, Weight, BMI Height: '" Weight: lbs. oz. kg; 22.10 BMI Method: General Appearance: No Apparent Distress, WD/WN, Anxious HEENT: PERRL/EOMI Neck: Full Range of Motion, Normal Inspection Respiratory: Chest Non Tender, Lungs Clear, Normal Breath Sounds, No Accessory Muscle Use Cardiovascular: Regular Rate, Rhythm, No Edema Gastrointestinal: Normal Bowel Sounds, Non Tender, Soft Extremity: Normal Range of Motion Neurologic/Psychiatric: Alert, Oriented x3, No Motor/Sensory Deficits, Normal Mood/Affect Skin: Normal Color Progress/Results/Core Measures Results/Orders Lab Results Laboratory Tests Test 02/25/22 21:00 Range/Units White Blood Count 3.4 L 4.3-11.0 10^3/uL Red Blood Count 4.10 L 4.30-5.52 10^6/uL Hemoglobin 14.5 13.3-17.7 g/dL Hematocrit 39 L 40-54 % Mean Corpuscular Volume 95 80-99 fL Mean Corpuscular Hemoglobin 35 H 25-34 pg Mean Corpuscular Hemoglobin Concent 37 H 32-36 g/dL Red Cell Distribution Width 11.6 10.0-14.5 % Platelet Count 141 130-400 10^3/uL Mean Platelet Volume 9.1 9.0-12.2 fL Immature Granulocyte % (Auto) 0 % Neutrophils (%) (Auto) 51 42-75 % Lymphocytes (%) (Auto) 32 12-44 % Monocytes (%) (Auto) 15 H 0-12 % Eosinophils (%) (Auto) 1 0-10 % Basophils (%) (Auto) 1 0-10 % Neutrophils # (Auto) 1.7 L 1.8-7.8 10^3/uL Lymphocytes # (Auto) 1.1 1.0-4.0 10^3/uL Monocytes # (Auto) 0.5 0.0-1.0 10^3/uL Eosinophils # (Auto) 0.0 0.0-0.3 10^3/uL Basophils # (Auto) 0.0 0.0-0.1 10^3/uL Immature Granulocyte # (Auto) 0.0 0.0-0.1 10^3/uL Prothrombin Time 13.7 12.2-14.7 SEC INR Comment 1.0 0.8-1.4 Activated Partial Thromboplast Time 27 24-35 SEC Sodium Level 130 L 135-145 MMOL/L Potassium Level 4.1 3.6-5.0 MMOL/L Chloride Level 95 L 98-107 MMOL/L Carbon Dioxide Level 26 21-32 MMOL/L Anion Gap 9 5-14 MMOL/L Blood Urea Nitrogen 19 H 7-18 MG/DL Creatinine 0.98 0.60-1.30 MG/DL Estimat Glomerular Filtration Rate 79 BUN/Creatinine Ratio 19 Glucose Level 114 H 70-105 MG/DL Calcium Level 9.3 8.5-10.1 MG/DL Corrected Calcium 9.0 8.5-10.1 MG/DL Magnesium Level 2.0 1.6-2.4 MG/DL Total Bilirubin 1.6 H 0.1-1.0 MG/DL Aspartate Amino Transf (AST/SGOT) 22 5-34 U/L Alanine Aminotransferase (ALT/SGPT) 15 0-55 U/L Alkaline Phosphatase 71 40-136 U/L Troponin I < 0.30 <0.30 NG/ML Total Protein 6.8 6.4-8.2 GM/DL Albumin 4.4 3.2-4.5 GM/DL My Orders Orders - RONAN ACEVEDO MD Cbc With Automated Diff (02/25/22 20:49) Comprehensive Metabolic Panel (02/25/22 20:49) Magnesium (02/25/22 20:49) Protime With Inr (02/25/22 20:49) Partial Thromboplastin Time (02/25/22 20:49) Troponin I Fs (02/25/22 20:49) Ekg Tracing (02/25/22 20:50) Continuous Ekg Monitoring (02/25/22 20:50) Progress Progress Note : Progress Note 1. NORMAL EXAM/ INSOMNIA/ ANXIETY: - Low WBC, RBC -Troponin EKG is nonischemic - Hyponatremia: s. Na is 130. Pt states it is always 130. He drinks lot of water and eats no sodium at all. Pt does intense cycling for 25 minutes everyday. - Pt refused CT head and CXR for dizzinesss - - Follow-up with PCP in the next 3 to 7 days -Considers stop using SAMe medication, and see if insomnia, anxiety, dizziness improves -Recommended ultrasound as outpatient for elevated bilirubin of 1.6 -Patient has psychiatry appointment coming up, advised to keep it -Advised to increase salt in the diet since patient currently does not take salt at all -Vitals stable in ER -Continue melatonin for insomnia -The patient was seen in the ED, and treated appropriately to presentation at a specific point in time. Patient is informed that there is a possibility that di sease and illness can evolve and change in acuity rapidly or slowly after patient is discharged from the ER. Precautionary advice given to the patient for immediate return to ER if symptoms worsen or do not resolve, and to seek emergency care sooner rather than later. Pt also advised on the importance of PCP follow up and compliance with management and follow up plan with PCP and/or specialist, as this is part of the management plan. Pt verbally expressed understanding. Departure Impression Primary Impression: Normal examination of heart and lungs Additional Impression: Anxiety Disposition: 01 HOME, SELF-CARE Condition: Stable Departure-Patient Inst. Referrals: SHUKRI HARPER MD (PCP/Family) Primary Care Physician Patient Instructions: Anxiety, Adult ED Add. Discharge Instructions: - Follow-up with PCP in the next 3 to 7 days -Considers stop using SAMe medication, and see if insomnia, anxiety, dizziness improves -Recommended ultrasound as outpatient for elevated bilirubin of 1.6 -Patient has psychiatry appointment coming up, advised to keep it -Advised to increase salt in the diet since patient currently does not take salt at all All discharge instructions reviewed with patient and/or family. Voiced understanding. RONAN ACEVEDO MD Feb 25, 2022 20:23
[2022-02-25 21:08] LABS: BASOPHILS % (AUTO) 1 % (0-10); EOSINOPHILS % (AUTO) 1 % (0-10); HEMATOCRIT 39 % (40-54); HEMOGLOBIN 14.5 g/dL (13.3-17.7); LYMPHOCYTES # (AUTO) 1.1 10^3/uL (1.0-4.0); LYMPHOCYTES % (AUTO) 32 % (12-44); MEAN CORPUSCULAR HEMOGLOBIN 35 pg (25-34); MEAN CORPUSCULAR HGB CONC 37 g/dL (32-36); MEAN CORPUSCULAR VOLUME 95 fL (80-99); MEAN PLATELET VOLUME 9.1 fL (9.0-12.2); MONOCYTES # (AUTO) 0.5 10^3/uL (0.0-1.0); MONOCYTES % (AUTO) 15 % (0-12); NEUTROPHILS # (AUTO) 1.7 10^3/uL (1.8-7.8); NEUTROPHILS % (AUTO) 51 % (42-75); PLATELET COUNT 141 10^3/uL (130-400); WHITE BLOOD COUNT 3.4 10^3/uL (4.3-11.0)
[2022-02-25 21:28] LABS: PROTHROMBIN TIME PATIENT 13.7 SEC (12.2-14.7)
[2022-02-25 21:30] LABS: CARBON DIOXIDE 26 MMOL/L (21-32); CHLORIDE 95 MMOL/L (98-107); POTASSIUM 4.1 MMOL/L (3.6-5.0); SODIUM 130 MMOL/L (135-145)
[2022-02-25 21:31] LABS: ALANINE AMINOTRANSFERASE 15 U/L (0-55); ALBUMIN 4.4 GM/DL (3.2-4.5); ALKALINE PHOSPHATASE 71 U/L (40-136); BILIRUBIN,TOTAL 1.6 MG/DL (0.1-1.0); BUN/CREATININE RATIO 19; CALCIUM 9.3 MG/DL (8.5-10.1); CREATININE SERUM 0.98 MG/DL (0.60-1.30); GFR ESTIMATED 79; GLUCOSE 114 MG/DL (70-105); TOTAL PROTEIN 6.8 GM/DL (6.4-8.2)
[2022-02-25 22:40] VITALS: BP 156/84
== END 2022-02-25 22:40 | disposition home or self-care (01) ==
LOC: EDUNIT# 20:01 → ER FS 20:02
DX: F41.9 Anxiety disorder, unspecified (principal); E87.1 Hypo-osmolality and hyponatremia
CPT/HCPCS: 36415; 80053; 83735; 84484; 85025; 85610; 85730; 93005